=== PATIENT | female | born 1990 | race Caucasian/White ===

== ENCOUNTER 2021-01-28 21:41 | Emergency (ER) | payer OTHER, SELFPAY ==
[2021-01-28] MEDS ORDERED: Ondansetron ODT 4 MG TAB ONE (22:57)
[2021-01-28 23:12] LABS: Bilirubin Negative (Negative); Blood, Urine Negative (Negative); Clarity Clear (Clear); Glucose, Urine (Dipstick) >=1000 mg/dL (Negative); Ketone, Urine Negative (Negative); Leukocyte Negative (Negative); Nitrite Negative (Negative); Protein, Urine (Dipstick) Negative (Neg-Trace); Urobilinogen 0.2 mg/dL (Less than 2); pH, Urine 6.5 (5.0-9.0)
[2021-01-28 23:12] LABS: #Basophils 0.1 thou/uL (0.0-0.2); #Eosinphils 0.2 thou/uL (0.0-0.7); #Lymphocytes 2.8 thou/uL (1.20-3.40); #Monocytes 0.5 thou/uL (0.11-0.59); #Neutrophils 2.7 thou/uL (1.40-6.50); %Basophils 1.2 % (0.0-1.0); %Eosinophils 3.6 % (0.0-10.0); %Lymphocytes 44.2 % (21.0-51.0); %Monocytes 8.1 % (0.0-10.0); %Neutrophils 42.9 % (42.0-75.0); Hemoglobin 13.5 g/dL (12.0-16.0); Mean Corpuscular HGB CONC 30.7 g/dL (32.0-36.0); Mean Corpuscular Hemoglobin 28.7 pg (27.0-31.0); Mean Corpuscular Volume 93.2 fL (78.0-98.0); Mean Platelet Volume 8.7 fL (7.4-10.4); Platelet Count 269 thou/uL (130-400); RBC Distribution Width 12.3 % (11.5-14.5); White Blood Cell (WBC) Count 6.2 thou/uL (4.8-10.8)
[2021-01-28 23:15] LABS: Pregnancy Test - Urine (BHCG) Negative (Negative)
[2021-01-28 23:16] LABS: Pregu Control Background? CLEAR/WHITE (CLR/WHITE); Pregu Control Bar Appear? YES (CONTROL BAR)
[2021-01-28 23:27] LABS: ALT (SGPT) 15 U/L (8-55); AST (SGOT) 15 U/L (5-34); Albumin 3.7 g/dL (3.5-5.0); Alkaline Phosphatase 102 U/L (40-110); Anion Gap 12 mmol/L (10-20); BUN (Urea Nitrogen) 18 mg/dL (7.0-18.7); Bilirubin, Total 0.3 mg/dL (0.2-1.2); Calc. Creatinine Clearance 0 mL/min (70-130); Carbon Dioxide 28 mmol/L (22-29); Chloride 103 mmol/L (98-107); Globulin 2.7 g/dL (2.4-3.5); Glucose 335 mg/dL (70-105); Lipase 36 U/L (8-78); Potassium 4.5 mmol/L (3.5-5.1); Protein, Total 6.4 g/dL (6.0-8.3); Sodium 138 mmol/L (136-145)
== END 2021-01-28 23:45 | disposition home or self-care (01) ==
LOC: MADERS 21:41
DX: R11.2 Nausea with vomiting, unspecified (principal); R19.7 Diarrhea, unspecified; E10.9 Type 1 diabetes mellitus without complications
CPT/HCPCS: 80053; 81003; 81025; 83690; 85025; 99284; Q0162

== ENCOUNTER 2021-02-22 07:42 | Emergency (ER) | payer BC, SELFPAY | END 2021-02-22 09:33 | disposition home or self-care (01) | LOC: MADERS 07:42 | DX: S30.0XXA Contusion of lower back and pelvis, initial encounter (principal); E10.9 Type 1 diabetes mellitus without complications; W22.8XXA Striking against or struck by other objects, initial encounter | CPT/HCPCS: 72220 ==

== ENCOUNTER 2021-10-26 11:36 | Emergency (ER) | payer BC ==
[2021-10-27 15:17] LABS: SARS-CoV-2 PCR by NAA DETECTED (NotDetected)
== END 2021-10-26 13:30 | disposition home or self-care (01) ==
LOC: MADERS 11:36
DX: U07.1 COVID-19 (principal); E10.9 Type 1 diabetes mellitus without complications; Z79.4 Long term (current) use of insulin; Z79.899 Other long term (current) drug therapy
CPT/HCPCS: 87804; 99284; U0003; U0005

== ENCOUNTER 2022-05-22 08:56 | Outpatient (CLI) | payer BC | END 2022-05-22 08:57 | disposition home or self-care (01) | LOC: MADLAB 08:56 → MADRAD 08:57 | PROVIDERS: ATTEND Registered Nurse | DX: S99.921A Unspecified injury of right foot, initial encounter (principal) ==